=== PATIENT | female | born 1985 | race Caucasian/White ===

== ENCOUNTER 2016-06-24 18:12 | Emergency (ER) | payer MEDICAID, OTHER ==
--- NOTE | 2016-06-24 18:28 | EDPHY ---
H & P Stated Complaint: N/V/D, cough, body aches, chills for 2 days Time Seen by Provider: 06/24/16 18:27 - Personal History LMP (Females 10-55): 15-21 Days Ago Current Tetanus Diphtheria and Acellular Pertussis (TDAP): Yes - Medical/Surgical History Hx Asthma: No Hx Chronic Respiratory Disease: No Hx Diabetes: No Hx Cardiac Disease: No Hx Renal Disease: No Hx Cirrhosis: No Hx Alcoholism: No Hx HIV/AIDS: No Hx Splenectomy or Spleen Trauma: No Other PMH: Depression - Social History Smoking Status: Heavy smoker Constitutional: Initial Vital Signs Temperature (C) 36.4 C 06/24/16 18:19 Heart Rate 75 06/24/16 18:19 Respiratory Rate 18 06/24/16 18:19 Blood Pressure 121/73 H 06/24/16 18:19 O2 Sat (%) 98 06/24/16 18:19 O2 Delivery Mode Room Air Allergies/Adverse Reactions: amoxicillin [Amoxicillin] Allergy (Verified 02/02/09 19:40) LAYTEX Allergy (Intermediate, Uncoded 02/03/09 14:46) Hives Home Medications: Medication Instructions Recorded Celexa 06/24/16 Medical Decision Making ED Course/Re-evaluation: CHIEF COMPLAINT: Diarrhea, cough. HISTORY OF PRESENT ILLNESS: The patient is a 30-year-old female who presents with diarrhea and cough since yesterday. She had multiple vomiting episodes yesterday but has not vomited today. She denies abdominal pain, fever, chills, or other complaints. She does have recent sick contact with her roommate who has had the exact same symptoms. REVIEW OF SYSTEMS: A 10 point review of systems was performed and is negative with the exception of the elements mentioned in the history of present illness. PHYSICAL EXAM: HR, BP, O2 Sat, RR. Temp noted General Appearance: Alert, well hydrated, appropriate, and non-toxic appearing. Head: Atraumatic without scalp tenderness or obvious injury Eyes: Pupils equal, round, reactive to light and accommodation, EOMI, no trauma , no injection. Ears: Clear bilaterally, no perforation, normal landmarks Nose: Atraumatic, no rhinorrhea, clear. Throat: There is no erythema or exudates, no lesions, normal tonsils, mucus membranes moist. Neck: Supple, 2+ carotid upstroke, nontender, no lymphadenopathy. Respiratory: No retractions, no distress, no wheezes, and no accessory muscle use. Lungs are clear to auscultation bilaterally. Cardiovascular: Regular rate and rhythm, no murmurs, rubs, or gallops. Bilateral carotid, radial, dorsalis pedis, and posterior tibial pulses intact. Good capillary refill all extremities. Gastrointestinal: Abdomen is soft, nontender, non-distended, no masses, no rebound, no guarding, no peritoneal signs. Musculoskeletal: Normal active ROM of all extremities, atraumatic. Neurological: Alert, appropriate, and interactive. The patient has normal DTRs and non-focal cranial nerves, motor, sensory, and cerebellar exam. Skin: No rashes, good turgor, no nodules on palpation. Past medical history: Denies. Past surgical history: N/A. Family history: N/A. Social history: Here with boyfriend. DIFFERENTIAL DIAGNOSIS: The differential diagnosis for the patient's diarrhea included but was not limited to gastroenteritis, gastritis, appendicitis, and medication side effect. MEDICAL DECISION MAKIN-year-old female presents with diarrhea and cough that began yesterday. Yesterday she vomited but has not vomited today. Her roommate has the exact same symptoms. She has a completely normal exam. I will give her 2L of fluid, .5mg IV Dilaudid to slow peristalsis, and then she will be PO challenged. I do not believe lab work is necessary at this time. - Data Points Medications Given: Discontinued Medications Hydromorphone HCl (Dilaudid) 0.5 mg IVP EDNOW ONE Stop: 06/24/16 18:48 Last Admin: 06/24/16 19:12 Dose: 0.5 mg Sodium Chloride (Ns) 1,000 mls @ 0 mls/hr IV ONCE ONE PRN Reason: Wide Open Stop: 06/24/16 18:48 Last Admin: 06/24/16 19:14 Dose: 1,000 mls Sodium Chloride (Ns) 1,000 mls @ 0 mls/hr IV ONCE ONE PRN Reason: Wide Open Stop: 06/24/16 18:48 Last Admin: 06/24/16 19:15 Dose: 1,000 mls Ondansetron HCl (Zofran) 4 mg IVP EDNOW ONE Stop: 06/24/16 18:48 Last Admin: 06/24/16 19:15 Dose: 4 mg Departure - Departure Disposition: Home, Routine, Self-Care Clinical Impression: Gastroenteritis Condition: Good Instructions: Gastroenteritis (ED) Additional Instructions: Drink only clear fluids for the next 24 hours. Advance diet slowly as tolerable. Return to the emergency department for any serious worsening of condition. Referrals: NONE *PRIMARY CARE P,. [Primary Care Provider] - As per Instructions Report Scribed for: Elio Martin Report Scribed by: Jim Blake Date of Report: 06/24/16 Time of Report: 18:49
[2016-06-24] MEDS ORDERED: NS 1,000 ML IV ONE ×2 (18:47)
[2016-06-24] MEDS ORDERED: HYDROmorphONE/DILAUDID 1 MG/ML SYR IVP ONE (18:47)
[2016-06-24] MEDS ORDERED: ONDANSETRON 4 MG/2 ML VIAL IVP ONE (18:47)
[2016-06-24 20:42] VITALS: BP 98/60; PULSE 67; RESP 20; TEMP 97.7; O2SAT 94
== END 2016-06-24 20:42 | disposition home or self-care (01) ==
DX: K52.9 Noninfective gastroenteritis and colitis, unspecified (principal); F17.200 Nicotine dependence, unspecified, uncomplicated; Z91.040 Latex allergy status
CPT/HCPCS: J1170; J2405

== ENCOUNTER → 2017-09-01 | Outpatient (CLI) | payer MEDICAID | LOC: FIMAGING 12:20 | PROVIDERS: ATTEND Obstetrics & Gynecology | DX: Z34.91 Encounter for supervision of normal pregnancy, unspecified, first trimester (principal); Z82.49 Family history of ischemic heart disease and other diseases of the circulatory system; Z82.79 Family history of other congenital malformations, deformations and chromosomal abnormalities; Z3A.12 12 weeks gestation of pregnancy ==